=== PATIENT | male | born 1980 | race African-American/Black ===

== ENCOUNTER 2016-09-26 17:09 | Emergency (ER) | payer OTHER ==
[~2016-09-26] VITALS: Ht 175.3 cm; Wt 137.9 kg
--- NOTE | 2016-09-26 17:12 | NUR ---
PT TO BED 1
[2016-09-26 17:18] VITALS: BP 155/104
--- NOTE | 2016-09-26 17:26 | NUR ---
PATIENT BIBA FOR LT EYE PAIN, ELEVATED B/P ON THE FEILD . DENIES N/V/D; SKIN IS PINK/WARM/DRY; AAOX4 WITH EVEN AND STEADY GAIT; LUNGS CLEAR BL; HR EVEN AND REGULAR; PT DENIES ANY FEVER, CP, SOB, OR COUGH AT THIS TIME; PATIENT STATES PAIN OF 0/10 AT THIS TIME; VSS; PATIENT POSITIONED FOR COMFORT; HOB ELEVATED; BEDRAILS UP X2; BED DOWN. ER MD MADE AWARE OF PT STATUS.
[2016-09-26] MEDS ORDERED: NATURE'S BLEN5000 IU PO (17:36)
[2016-09-26] MEDS ORDERED: GLUCOPHAGE500 MG PO (17:36)
[2016-09-26] MEDS ORDERED: PROZAC10 MG PO (17:36)
[2016-09-26] MEDS ORDERED: DIPHENHYDRAMINE PO (17:36)
[2016-09-26] MEDS ORDERED: COGENTIN1 MG PO (17:36)
[2016-09-26] MEDS ORDERED: ZESTRIL5 MG PO (17:36)
[2016-09-26] MEDS ORDERED: ZYPREXA20 MG PO (17:36)
[2016-09-26] MEDS ORDERED: MOTRIN600 MG PO (17:36)
[2016-09-26 18:32] VITALS: BP 147/79
--- NOTE | 2016-09-26 18:32 | NUR ---
Patient discharged with v/s stable. Written and verbal after care instructions given and explained. Patient alert, oriented and verbalized understanding of instructions. Ambulatory with steady gait. All questions addressed prior to discharge. ID band removed. Patient advised to follow up with PMD. Rx of SULFACETAMIDE EYE DROPS given. Patient educated on indication of medication including possible reaction and side effects. Opportunity to ask questions provided and answered.
== END 2016-09-26 18:32 | disposition home or self-care (01) ==
LOC: MED 17:09
DX: T15.91XA Foreign body on external eye, part unspecified, right eye, initial encounter (principal); H10.9 Unspecified conjunctivitis; E11.9 Type 2 diabetes mellitus without complications; I10 Essential (primary) hypertension; Z88.0 Allergy status to penicillin; W45.8XXA Other foreign body or object entering through skin, initial encounter; Y93.89 Activity, other specified; Y92.89 Other specified places as the place of occurrence of the external cause; Y99.8 Other external cause status

== ENCOUNTER 2016-10-16 16:57 | Inpatient (IN) | payer OTHER ==
[~2016-10-16] VITALS: Ht 182.9 cm; Wt 124.9 kg
[~2016-10-16 16:57] MED LIST: COGENTIN1 MG PO; DIPHENHYDRAMINE PO; GLUCOPHAGE500 MG PO; MOTRIN600 MG PO; NATURE'S BLEN5000 IU PO; PROZAC10 MG PO; ZESTRIL5 MG PO; ZYPREXA20 MG PO
--- NOTE | 2016-10-16 16:57 | NUR ---
Patient was BIBA and taken to bed 01. [place] [employer] at bedside.
[2016-10-16] MEDS ORDERED: LORazepam 2 MG/ML VIAL IM/IVP ONE (17:00)
--- NOTE | 2016-10-16 17:00 | NUR ---
Dr. Dai evaluating patient at bedside.
[2016-10-16 17:11] VITALS: BP 215/127
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
--- NOTE | 2016-10-16 17:27 | NUR ---
PT IS NOT ON RESTRAINTS AFTER ARRIVAL
--- NOTE | 2016-10-16 17:37 | NUR ---
PT NON COMBATIVE AT THIS TIME.
--- NOTE | 2016-10-16 19:19 | NUR ---
REPORT GIVEN TO TIFFANIE LAKE
[2016-10-16] MEDS ORDERED: LORazepam 2 MG/ML VIAL IVP PRN (20:50)
[2016-10-16] MEDS ORDERED: HALOPERIDOL IM 5 MG/ML VIAL IVP PRN (20:50)
--- NOTE | 2016-10-16 21:30 | NUR ---
Patient will be admitted to care of DR. RITCHIE. Admited to MEDSUR. Will go to roomICU BED 5. Belongings list completed. Report to ASMITA MORENO.
[2016-10-16 21:35] VITALS: BP 141/90
--- NOTE | 2016-10-16 21:35 | NUR ---
REPORT PROVIDED FROM ALEKSANDRA MORENO. PATIENT ADMITTED FOR SCHIZOPHRENIA, 5150 HOLD, AND GRAVELY DISABLED. RECEIVED PATIENT VIA GURNEY FROM ER. PATIENT IS ALERT, AWAKE, AND ORIENTED. PATIENT IS COMPLIANT AT THIS TIME. VITALS ARE STABLE. BP IS 141/90, HR 63, TEMPERATURE IS 97.7. PATIENT IS MED-SURG STATUS. THERE IS A #20 IN THE LEFT FOREARM SALINE LOCK. SITE IS DRY AND INTACT. MRSA SWAB COLLECTED. ORIENTED PATIENT TO SURROUNDINGS, INCLUDING HOW TO USE CALL LIGHT FOR ASSISTANCE. PATIENT VERBALIZED UNDERSTANDING. EXPLAINED TO PATIENT PLAN OF CARE TONIGHT TO INCLUDE VITAL SIGNS, OBSERVATION, AND PRN MEDICATIONS. PATIENT VERBALIZED UNDERSTANDING. HOB AT 30 DEGREES WITH BED IN LOW POSITION. CONTINUE TO MONITOR PATIENT.
--- NOTE | 2016-10-16 22:26 | NUR ---
PATIENT SLEEPING IN BED. NO SIGNS OF SOB OR DISTRESS NOTED. CONTINUE TO MONITOR.
[2016-10-17] VITALS: BP 128/88
--- NOTE | 2016-10-17 00:09 | NUR ---
PATIENT SLEEPING IN BED WITH NO SIGNS OF SOB OR DISTRESS NOTED. HOB AT 30 DEGREES WITH BED IN LOW POSITION. CALL LIGHT WITHIN REACH. CONTINUE TO MONITOR PATIENT.
--- NOTE | 2016-10-17 03:52 | NUR ---
PATIENT IS ASLEEP AND STABLE. NO SIGNS OF RESPIRATORY DISTRESS NOTED. WILL CONTINUE TO MONITOR.
--- NOTE | 2016-10-17 06:43 | NUR ---
PATIENT SLEEPING IN BED AND IS STABLE. NO SIGNS OF SOB OR RESPIRATORY DISTRESS NOTED. CONTINUE TO MONITOR.
--- NOTE | 2016-10-17 07:04 | NUR ---
PATIENT IS SLEEPING AND STABLE. ENDORSED CONTINUITY OF CARE TO DONTE MORENO.
--- NOTE | 2016-10-17 07:30 | NUR ---
RECEIVED BEDSIDE REPORT FROM ASMITA MORENO. PT IS SLEEPING BUT EASILY AWAKING BY INITIAL ASSESSMENT. APPLIED BEDSIDE MONITOR ON PT SHOWS SR.BP 141/91. PT ON ROOM AIR, NO S/S OF RESPIRATORY DISTRESS NOTED, LUNG SOUNDS CLEAR. ABDOMEN SOFT WITH ACTIVE BOWEL SOUNDS. SKIN INTACT,PT CAN MOVE ALL HIS EXTREMITIES. IV TO LEFT FOREARM # 20, SALINE LOCKED. SITE INTACT AND PATENT. POC DISCUSSED WITH PT, ORIENTED PT SURROUNDINGS, PT IS CALM AND VERBALIZED UNDERSTANDING. PT DOES NOT HAVE ANY SUICIDAL PLAN AT THIS TIME. SIDE RAILS UPX2 WITH LOW BED POSITION. HOB ELEVATED 30 DEGREES. ASSISTED PT ORAL CARE. WILL CONTINUE TO MONITOR.
[2016-10-17 08:00] VITALS: BP 141/91
[2016-10-17] MEDS ORDERED: PNEUMOCOCCAL VACCINE 23 MCG/0.5 ML VIAL IMVAC SCH (09:00)
[2016-10-17] MEDS ORDERED: INFLUENZA VIRUS VACCINE QUAD 0.5 ML SYR IMVAC SCH (09:00)
--- NOTE | 2016-10-17 09:14 | NUR ---
SS NOTE: PER MACK FROM [facility], THEY WILL REVIEW PT'S INFORMATION AND IF PT IS ACCEPTED THEN THEY WILL CALL BACK IF THERE IS A BED AVAILABLE.
--- NOTE | 2016-10-17 09:18 | NUR ---
PATIENT HAS BEEN SCREENED AND CATEGORIZED MODERATE NUTRITION RISK. PATIENT WILL BE SEEN WITHIN 3-5 DAYS OF ADMISSION. 10/19/16-10/21/[address]
[2016-10-17] MEDS ORDERED: FLUoxetine 20 MG CAP PO SCH (09:53)
[2016-10-17] MEDS ORDERED: INSULIN ASPART SLIDING SCALE 100 UNITS/ML VIAL SUBQ PRN (10:05)
[2016-10-17] MEDS ORDERED: DEXTROSE 50% 50 ML SYR IVP PRN (10:05)
--- NOTE | 2016-10-17 10:10 | NUR ---
DR. BERUMEN CALLED RE: PSYCH CONSULT. LEFT. FACE SHEET FAXED TO HIS OFFICE.
[2016-10-17] MEDS: BLOOD GLUCOSE MONITORING 1 DEV DEV FS SCH ×3 (11:28→20:34)
--- NOTE | 2016-10-17 12:37 | NUR ---
SERVED PT LUNCH TRAY, PT HAD A GOOD APPETITE.
--- NOTE | 2016-10-17 12:54 | NUR ---
CM NOTE PER FIBER TECHNICIAN ROSARIO EXT [phone], REVIEWS SHOULD ONLY GO TO [facility]. SENT INITIAL REVIEW TO [facility] FAX# [phone] PH# [phone]
--- NOTE | 2016-10-17 13:50 | NUR ---
DR. BENNETT PSYCHIATRIC IN TO ASSESS PT. UPDATED PT'S CONDITION.
--- NOTE | 2016-10-17 14:15 | NUR ---
REPORT GIVEN TO DENISE JOHNSON RN. TRANSFERRED PT TO [facility]. PT IN STABLE CONDITION AT THIS TIME.
--- NOTE | 2016-10-17 14:25 | NUR ---
RECEIVED FROM ICU VIA GURNEY. AWAKE, ALERT, AND ORIENTED X3. SPEECH CLEAR. NO C/O PAIN. CALM, QUIET AND COOPERATIVE. NO SUICIDAL THOUGHTS OBSERVED. KEEP ENVIRONMENT SAFE. CLOSELY MONITORED BY JUDITH MULLIGAN 1:1. CALL LIGHT WITHIN REACH.
--- NOTE | 2016-10-17 15:30 | NUR ---
REPORT GIVEN TO LUPE FROM [facility]. ALEX FROM [facility] WAS NOTIFIED REGARDING TRANSFER
--- NOTE | 2016-10-17 15:52 | NUR ---
SS NOTE: PER CONCEPCIÓN FROM [facility] ([phone]), PT HAS BEEN ACCEPTED AND PT CAN GO TO INTAKE UNDER DR. JONES. NEREIDA ARECHIGA. Addendum: 10/17/16 at 1600 by Elizabeth Brar SS I SPOKE WITH PT'S MOTHER, SAFIA AND MADE HER AWARE OF PT'S TRANSFER TO [facility].
[2016-10-17 16:00] VITALS: BP 146/95
--- NOTE | 2016-10-17 16:15 | NUR ---
CALLED [facility] INTAKE DEPARTMENT AND GAVE REPORT TO [facility]. [facility] AR[facility]OL[facility].
--- NOTE | 2016-10-17 16:15 | NUR ---
CM NOTE SPOKE WITH SUSAN OF [facility] PH# [phone] FAX# [phone]. PATIENT TRANSPORT SET UP WITH [facility], ON PSYCH HOLD. STEEL BUFFER FROM [facility] [place] 1700 TIME TODAY GOING TO [facility] GOING TO INTAKE WITH DR. PEÑALOZA ACCEPTING DOCTOR. CHARGE NURSE ELLIE ARECHIGA EXT [phone]
--- NOTE | 2016-10-17 16:32 | NUR ---
RECE[facility] UNABLE TO TAKE PT. DUE TO HX OF PT BEING AT [facility]. ISSA ARECHIGA.
--- NOTE | 2016-10-17 16:38 | NUR ---
CALLED PT. MOTHER -SAFIA MONTEMAYOR AND INFORMED THAT PT. WILL NO LONGER BE TRANSFERRED TO [facility] PER VAULT CASHIER -ISSA. INFORMED CHARGE NURSE MAYURI ARREOLA.
--- NOTE | 2016-10-17 16:42 | NUR ---
CM NOTE SPOKE WITH SUSAN OF [facility] PH# [phone] TO CANCEL PATIENT TRANSPORT BECAUSE [facility] CANNOT ACCEPT PATIENT ANYMORE PER ULYSSES PARSONS. CHARGE NURSE ELLIE ARECHIGA EXT [phone]
--- NOTE | 2016-10-17 16:50 | NUR ---
PAGED DR. RITCHIE AND SPOKE TO CARL REGARDING PT CANCELLATIO Addendum: 10/17/16 at 1719 by Olegario Hayden LVN INCOMPLETE ENTRY.
--- NOTE | 2016-10-17 16:50 | NUR ---
PAGED DR. RITCHIE AND SPOKE TO CARL REGARDING CANCELLATION OF TRANSFER TO [facility]. LEFT CALL BACK NUMBER.
--- NOTE | 2016-10-17 17:00 | NUR ---
DR. CHAU GILLISEED BACK, INFORMED THAT PT. TRANSFER TO [facility] WAS CANCEL PER COUNTRY MANAGER -ISSA. CHARGE NURSE MAYURI CAVANAUGH -RN ALSO SPOKE AND EXPLAINED TO DR. RITCHIE REGARDING TRANSFER THAT WAS CANCELLED. GOT TELEPHONE ORDER, READ BACK AND VERIFIED.
[2016-10-17] MEDS: metFORMIN 500 MG TAB PO SCH (17:39)
--- NOTE | 2016-10-17 17:42 | NUR ---
SEEN WATCHING TV. NO DISCOMFORT NOTED. CONTINUE TO WATCH BY A SITTER -JUDITH ROD.
--- NOTE | 2016-10-17 19:07 | NUR ---
REPORT GIVEN TO ALEKSANDRA ARREOLA. IN STABLE CONDITION.
--- NOTE | 2016-10-17 19:30 | NUR ---
RECEIVED REPORT FROM ALEX BENÍTEZ AT BEDSIDE. PT IS ALERT AWAKE ORIENTED X4. INITIAL ASSESSMENT DONE. NO S/S OF RESPIRATORY DISTRESS OR SOB NOTED. NO C/O PAIN OR ANY DISCOMFORT AT THIS TIME. PT IS ON 1:1 SITTER. PLAN OF CARE REVIEWED TO PT AND VERBALIZED UNDERSTANDING. CALL LIGHT WITHIN REACH. WILL CONTINUE TO MONITOR.
[2016-10-17] MEDS: diphenhydrAMINE 50 MG CAP PO SCH (20:17)
[2016-10-17] MEDS: BENZTROPINE 1 MG TAB PO SCH (20:17)
[2016-10-17] MEDS: OLANZapine 5 MG TAB PO SCH (20:18)
[2016-10-18] VITALS: BP 142/85
--- NOTE | 2016-10-18 01:00 | NUR ---
PT IS SLEEPING RIGHT NOW BUT EASILY AROUSABLE. NO S/S OF ANY DISCOMFORT AT THIS TIME. ALL NEEDS ARE ATTENDED. CALL LIGHT WITHIN REACH. WILL CONTINUE TO MONITOR.
--- NOTE | 2016-10-18 05:15 | NUR ---
AM CARE RENDERED. BED LINEN CHANGED. INSTRUCTED PT TO REPOSITION. KEPT CLEAN AND DRY. CALL LIGHT WITHIN REACH. WILL CONTINUE TO MONITOR.
[2016-10-18] MEDS: BLOOD GLUCOSE MONITORING 1 DEV DEV FS SCH ×4 (06:35→20:18)
--- NOTE | 2016-10-18 07:17 | NUR ---
ASSUMED CONTINUITY OF CARE. NO SIGNS AND SYMPTOMS OF ACUTE DISTRESS NOTED. INITIAL ASSESSMENT DONE. CALM, QUIET. AND COOPERATIVE. NO AGGRESSIVE BEHAVIOR AND SUICIDAL THOUGHTS OBSERVED. KEEP COMFORTABLE ON BED. KEEP SURROUNDINGS SAFE. EXPLAINED DIAGNOSIS, PLAN OF CARE, PAIN MANAGEMENT TEACHING, USE OF CALL LIGHT/BED/TV/BATHROOM. VERBALIZED UNDERSTANDING. CALL LIGHT WITHIN REACH. CLOSELY MONITORED BY KILEY MULLIGAN 1:1.
--- NOTE | 2016-10-18 07:17 | NUR ---
PT HAS NO S/S OF ANY DISCOMFORT. PLAN OF CARE ENDORSED TO ALEX ZARATE AT BEDSIDE FOR CONTINUITY OF CARE.
--- NOTE | 2016-10-18 07:18 | NUR ---
Patient's Plan of Care was discussed and reviewed with MICA MINER BLASTING: ALEX Wu
[2016-10-18 08:00] VITALS: BP 153/96
--- NOTE | 2016-10-18 08:38 | NUR ---
SS NOTE: FAXED PSYCH PLACEMENT INQUIRIES TO: [facility]
[2016-10-18] MEDS ORDERED: FLUoxetine 20 MG CAP PO SCH (09:00)
[2016-10-18] MEDS: metFORMIN 500 MG TAB PO SCH ×2 (09:09→17:25)
[2016-10-18] MEDS: BENZTROPINE 1 MG TAB PO SCH ×2 (09:09→20:19)
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
--- NOTE | 2016-10-18 10:50 | NUR ---
DR. RITCHIE CAME, INFORMED OF PT. BP AT 0800 153/96. NO ORDER RECEIVED.
--- NOTE | 2016-10-18 11:08 | NUR ---
WENT TO BATHROOM WITHOUT ASSISTANCE. TOLERATED WELL. NO C/O PAIN. NO SOB, NOTED. KEEP FREE FROM INJURY.
--- NOTE | 2016-10-18 11:31 | NUR ---
SS NOTE: PER PILI FROM [facility] ([phone]), DR. RITCHIE NEEDS TO CALL THEIR HOME AND SCHOOL VISITOR, DR. MINA FOR A MD TO MD REPORT. SHE ALSO STATED THAT IF DR. MINA IS ABLE TO ACCEPT PT THEN SHE WILL PROVIDE A BED NUMBER. DR. RITCHIE MADE AWARE.
--- NOTE | 2016-10-18 11:50 | NUR ---
SS NOTE: I RECEIVED A CALL FROM DR. RITCHIE. HE STATED THAT HE SPOKE WITH DR. MINA AND HE HAS ACCEPTED THE PT. PER PILI FROM [facility] ([phone]), PT CAN GO TO ROOM 1A ANYTIME AFTER 1730 UNDER PSYCHIATRIST, DR. JUAREZ. SHE ALSO STATED THAT REPORT CAN BE CALLED [phone] EXT. [phone]. WRAPPING MACHINE TENDER ALEM AND RU TAN AWARE.
[2016-10-18 12:00] VITALS: BP 147/95
--- NOTE | 2016-10-18 12:00 | NUR ---
CALLED PT. MOTHER -SAFIA MONTEMAYOR AT AND INFORMED THAT PT. WILL BE TRANSFER TO [facility] PER MD ORDER AND MEDIA MARKETING MANAGER TIME AT 1700. INFORMED CHARGE NURSE LYNN ARREOLA.
--- NOTE | 2016-10-18 12:15 | NUR ---
CALLED [facility] AT EXT#[phone] FOR REPORT REGARDING PT. TRANSFER. PER ALFONSO, REPORT SHOULD BE CALL AT 1530 BECAUSE RECEIVING NURSE WILL BE AVAILABLE AT THAT TIME. INFORMED CHARGE NURSE LYNN ARREOLA.
--- NOTE | 2016-10-18 12:51 | NUR ---
CM NOTE CONCURRENT REVIEW SENT TO [facility] FAX#[phone] PH# [phone]. SPOKE WITH JOSE OF [facility] TO SET UP PATIENT TRANSPORT. ROBOTIC WELDER FROM [facility] 1700 TIME TODAY ON PSYCH HOLD GOING TO [facility] RM1 BED A, PHONE# FOR REPORT [phone] EXT [phone], ACCEPTING DR. JUAREZ. CHARGE NURSE LYNN ARECHIGA EXT [phone]. Addendum: 10/18/16 at 1512 by Dary Antony PER ULYSSES PARSONS, THE BED AT [facility] WILL NOT BE AVAILABLE UNTIL 1999 TIME TODAY. SPOKE WITH BETTY OF [facility] PH# [phone] TO INFORM [facility] OF THE CHANGE. THE NEW PATIENT ROBOTIC WELDER TIME AT [place] IS CHANGED TO 1999 (8PM) TODAY. SALES ENABLEMENT ANALYSTTIFFANIE ARECHIGA.
--- NOTE | 2016-10-18 17:12 | NUR ---
CALLED [facility] AT EXT#[phone] AND SPOKE TO LEVI -CHARGE NURSE REGARDING REPORT FOR PT. TRANSFER. PER CHARGE NURSE -LEVI THEY WANT REPORT TO BE GIVEN AT 1900 DUE TO INTAKE DEPARTMENT STAFF AVAILABILITY. INFORMED CHARGE NURSE LYNN GRECO -TIFFANIE.
--- NOTE | 2016-10-18 17:45 | NUR ---
PILI FROM [facility] CALLED AND ASKED THAT PT. NEED TO BE TRANSFER AT 2130 AT [facility] ROOM 12-A AND REPORT TO BE GIVEN AT 1999 AT EXT#[phone]. INFORMED CHARGE NURSE LYNN ARREOLA.
--- NOTE | 2016-10-18 17:55 | NUR ---
CALLED JOSE FROM [facility] MEDICAL TRANSPORT AND ASKED THAT PT. TO BE PICK-UP AT 2099 INSTEAD OF 1999, PER [facility] STAFF REQUEST. INFORMED CHARGE NURSE LYNN SAINI.
--- NOTE | 2016-10-18 19:15 | NUR ---
RECEIVED PT AWAKE ON BED WATCHING TV, AAOX4, CALM, COOPERATIVE AND CONVERSANT, NO SUICIDAL THOUGHTS AND NO AGGRESSIVE BEHAVIOR NOTED, VITAL SIGNS TAKEN, BP SLIGHTLY ELEVATED, ASYMPTOMATIC, DENIES ANY PAIN, IV HEPLOCK TO LEFT FA, INTACT AND PATENT, AWARE OF TRANSFER TO [facility] TONIGHT, VERBALIZED UNDERSTANDING, ALL NEEDS ATTENDED, CALL LIGHT WITHIN REACH.
--- NOTE | 2016-10-18 20:17 | NUR ---
REPORT GIVEN TO CHRIST, RECEIVING RN FROM [facility].
[2016-10-18] MEDS: OLANZapine 5 MG TAB PO SCH (20:19)
[2016-10-18] MEDS: diphenhydrAMINE 50 MG CAP PO SCH (20:19)
--- NOTE | 2016-10-18 20:29 | NUR ---
DUE MEDICATION TAKEN, IV HEPLOCK DC WITH TIP INTACT, DC INSTRUCTIONS AND TEACHINGS GIVEN, VERBALIZED UNDERSTANDING, DISCHARGE PAPERS SIGNED, SNACK PROVIDED PER REQUEST, ALL NEEDS ATTENDED.
--- NOTE | 2016-10-18 21:14 | NUR ---
SECURITY BROUGHT PT'S BELONGINGS AT BEDSIDE, [facility] TRANSPORT HERE, DISCHARGE IN STABLE CONDITION TO [facility].
== END 2016-10-18 21:10 | DRG 750 ==
LOC: MED 16:57 → MIC 21:00 → MTU 10-17 14:28
PROVIDERS: ADMIT Hospitalist; ATTEND Hospitalist
DX: F20.0 Paranoid schizophrenia (principal); E11.9 Type 2 diabetes mellitus without complications; I10 Essential (primary) hypertension; F78 Other intellectual disabilities; F31.9 Bipolar disorder, unspecified; F17.210 Nicotine dependence, cigarettes, uncomplicated; J45.909 Unspecified asthma, uncomplicated; F64.0 Transsexualism; Z88.0 Allergy status to penicillin; Z79.4 Long term (current) use of insulin